=== PATIENT | female | born 1960 ===

== ENCOUNTER 2023-05-31 11:00 | Day surgery (SDC) | payer OTHER ==
[~2023-05-31] VITALS: Ht 157.5 cm; Wt 63.5 kg
[~2023-05-31 11:00] MED LIST: GRALISE600 MG PO; HYZAAR 50-12.51 EACH PO; METFOR PO; SINGULAIR10 MG PO; ZYRTEC10 M3 PO
== END 2023-05-31 16:05 | disposition home or self-care (01) ==
LOC: CIR.AMB 11:00
PROVIDERS: ATTEND Obstetrics & Gynecology
DX: N85.00 Endometrial hyperplasia, unspecified (principal); Z20.822 Contact with and (suspected) exposure to COVID-19; I10 Essential (primary) hypertension; E78.5 Hyperlipidemia, unspecified